=== PATIENT | female | born 1975 | race Caucasian/White ===

== ENCOUNTER 2016-07-15 06:45 | Emergency (ER) | payer BC ==
--- NOTE | 2016-08-14 17:09 | ER ---
ADMIT: 07/15/2016 RM/LOC: ER [facility] MR#: [id number] [address] [address] DEO FOST[address] [place], [place] [id number] Emergency Room Report SEX: F AGE: 41 : 1975 DATE: A 41-year-old comes to the Emergency Department with complaints of shortness of breath, not breathing well. See T sheet for remainder of history and physical. An ABG reveals a pH of 7.45, pCO2 of 27, PO2 of 88, 96% saturations on room air. DIAGNOSES: 1. Shortness of breath. 2. Elevated blood pressure. PLAN: She is instructed to follow up with Dr. Reeves this coming week as scheduled. Nik Cavazos MD/ chidi JOB #: [id number] CC: Jona Farmer MD, Attending Physician Arian Reeves MD, Family Physician
== END 2016-07-15 07:50 | disposition home or self-care (01) ==
LOC: ER 06:45
DX: R06.02 Shortness of breath (principal); I10 Essential (primary) hypertension; F32.9 Major depressive disorder, single episode, unspecified; Z88.1 Allergy status to other antibiotic agents; Z79.899 Other long term (current) drug therapy

== ENCOUNTER 2016-07-15 20:19 | Emergency (ER) | payer BC ==
--- NOTE | 2016-09-03 16:06 | ER ---
ADMIT: 07/15/2016 RM/LOC: ER [facility] MR#: [id number] [address] [address] FOSTERJOHN WALLISTCHEN [address] [place] [address] [place] [address] Emergency Room Report SEX: F AGE: 41 : 1975 CORRECTED: 09/03/2016 0741 [place] DATE: 07/15/2016 ADDENDUM: PHYSICAL EXAMINATION: GENERAL: The patient is alert, mildly anxious. HEENT: Right ear effusion. Eyes PERRLA. Negative nystagmus. Negative for tongue laceration or abrasion or deviation. NECK: Supple. No meningismus. RESPIRATIONS: No distress. CVS: Regular in rate and rhythm. ABDOMEN: Nontender, obese, and soft. NEURO: Negative for postictal confusion or somnolence. Preserved surrounding awareness. Oriented x4. Mood and affect normal. SENSORY MOTOR: No sensory or motor deficit. While patient was being examined, there was a brief episode of less than 5 seconds of synchronized bilateral slow nicholas arm tremor with complete awareness of surrounding. No eye movement disorder, no LOC, no incontinence. No postictal deficit. CLINICAL IMPRESSION: Upper respiratory tract infection with right otitis media with effusion and nonepileptic tremors. AUSTIN Rueda / Jona Farmer MD / modl JOB #: [id number] CC: Jona Farmer MD, Attending Physician Arian Reeves MD, Family Physician CORRECTED: 09/03/2016 0741 [place]
--- NOTE | 2016-09-24 09:23 | ER ---
ADMIT: 07/15/2016 RM/LOC: ER [facility] MR#: [id number] [address] [facility] [address] [place], [place] [address] DEO FOSTER [address] [address] Emergency Room Report SEX: F AGE: 41 : 1975 REVISED CORRECTED DOCUMENT; 09/22/2016 0256 [place] DATE: 07/15/2016 HISTORY OF PRESENT ILLNESS: Ms. Foster was in the emergency room this morning with what was called shortness of breath and pseudoseizure. She had blood gases done. She was discharged. Advised to follow up with Dr. Reeves. She ended up going to urgent care, which contacted the ER today to tell us that she was having a seizure while she was there. She was brought in via ambulance. She does have some friends in the lobby waiting for her. She says she started all this dry heaving this morning. At work, she was sitting, she works at the newspaper, and then started feeling a little weird again. She says she has a recent change in medication from paroxetine to fluoxetine a month ago. She has been taking it and she says she is feeling much better with this medication. She states she is on a control pill that also helps with her headache because it has to deal with hormone manipulation, and so I reviewed her chart from this morning. She has some psychiatric issues. She has high blood pressure. MEDICATIONS: She has multiple medications, which includes: 1. Fluoxetine. 2. Mirtazapine. 3. Amethia. 4. Levothyroxine. 5. Prilosec. 6. BuSpar. ALLERGIES: SHE IS ALLERGIC TO COMPAZINE AND ERYTHROMYCIN. PHYSICAL EXAMINATION: GENERAL: The patient is alert, mildly anxious. HEENT: Right ear effusion. Eyes PERRLA. Negative nystagmus. Negative for tongue laceration or abrasion or deviation. NECK: Supple. No meningismus. RESPIRATIONS: No distress. CVS: Regular in rate and rhythm. ABDOMEN: Nontender, obese, and soft. NEURO: Negative for postictal confusion or somnolence. Preserved surrounding awareness. Oriented x4. Mood and affect normal. SENSORY MOTOR: No sensory or motor deficit. While patient was being examined, there was a brief episode of less than 5 ADMIT: 07/15/2016 RM/LOC: ER [facility] MR#: [id number] [address] [address] [place] [address] Emergency Room Report SEX: F AGE: 41 : 1975 seconds of synchronized bilateral slow nicholas arm tremor with complete awareness of surrounding. No eye movement disorder, no LOC, no incontinence. No postictal deficit. CLINICAL IMPRESSION: URI (upper respiratory infection) with right otitis media with effusion and nonepileptic tremors. AUSTIN Rueda / Jona Farmer MD / modl JOB #: [id number] /[id number] CC: Jona Farmer MD, Attending Physician Arian Reeves MD, Family Physician REVISED CORRECTED DOCUMENT; 09/22/2016 0256 DAVID
== END 2016-07-15 21:38 | disposition home or self-care (01) ==
LOC: ER 20:19
DX: J06.9 Acute upper respiratory infection, unspecified (principal); H65.91 Unspecified nonsuppurative otitis media, right ear; R25.1 Tremor, unspecified; R06.4 Hyperventilation; R56.9 Unspecified convulsions; I10 Essential (primary) hypertension; Z88.1 Allergy status to other antibiotic agents; Z88.8 Allergy status to other drugs, medicaments and biological substances; Z79.899 Other long term (current) drug therapy

== ENCOUNTER → 2016-10-13 | Outpatient (CLI) | payer BC | END | disposition home or self-care (01) | LOC: RAD.S 09-29 16:34 | DX: Z12.31 Encounter for screening mammogram for malignant neoplasm of breast (principal); R10.9 Unspecified abdominal pain; M54.9 Dorsalgia, unspecified; R93.7 Abnormal findings on diagnostic imaging of other parts of musculoskeletal system ==